=== PATIENT | male | born 2005 | race Caucasian/White ===

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

== ENCOUNTER 2024-04-29 21:18 | Emergency (ER) | payer BC ==
[~2024-04-29] VITALS: Ht 167.6 cm; Wt 104.3 kg
== END 2024-04-29 21:50 | disposition home or self-care (01) ==
LOC: ED 21:18
DX: H57.89 Other specified disorders of eye and adnexa (principal); Z77.098 Contact with and (suspected) exposure to other hazardous, chiefly nonmedicinal, chemicals; F90.9 Attention-deficit hyperactivity disorder, unspecified type

== ENCOUNTER 2024-10-24 17:35 | Emergency (ER) | payer BC ==
[~2024-10-24] VITALS: Ht 170.1 cm; Wt 106.6 kg
[2024-10-24] MEDS ORDERED: ACETAMINOPHEN 325 MG TAB PO ONE (18:05)
[2024-10-24] MEDS ORDERED: AVPAK AZITHROM250 M1 PO (18:45)
[2024-10-24] MEDS ORDERED: AZITHROMYCIN 250 MG TAB PO ONE (18:50)
== END 2024-10-24 18:58 | disposition home or self-care (01) ==
LOC: ED 17:35
DX: J18.9 Pneumonia, unspecified organism (principal); Z20.822 Contact with and (suspected) exposure to COVID-19; R11.2 Nausea with vomiting, unspecified; F90.9 Attention-deficit hyperactivity disorder, unspecified type

== ENCOUNTER 2025-03-16 16:49 | Emergency (ER) | payer BC ==
[~2025-03-16] VITALS: Ht 167.6 cm; Wt 104.3 kg
[~2025-03-16 16:49] MED LIST changes: +AVPAK AZITHROM250 M1 PO
[2025-03-16] MEDS ORDERED: Metoclopramide Hydrochloride 10 MG/2 ML VIAL IV ONE (17:15)
[2025-03-16] MEDS ORDERED: diphenhydrAMINE hydrochloride 50 MG/ML VIAL IV ONE (17:15)
[2025-03-16] MEDS ORDERED: SODIUM CHLORIDE 0.9% 500 ML IV ONE (17:15)
[2025-03-16] MEDS ORDERED: Ondansetron Hydrochloride 4 MG/2 ML VIAL IV ONE (17:15)
[2025-03-16] MEDS ORDERED: Ondansetron4 MG PO (18:36)
[2025-03-16] MEDS ORDERED: BUTALB-ACETAMI1 EAC2 PO (18:36)
== END 2025-03-16 18:48 | disposition home or self-care (01) ==
LOC: ED 16:49
DX: G43.909 Migraine, unspecified, not intractable, without status migrainosus (principal); Z79.899 Other long term (current) drug therapy

== ENCOUNTER 2025-03-30 11:24 | Emergency (ER) | payer OTHER, BC ==
[~2025-03-30] VITALS: Ht 167.6 cm; Wt 104.3 kg
[~2025-03-30 11:24] MED LIST changes: +BUTALB-ACETAMI1 EAC2 PO; +Ondansetron4 MG PO
[2025-03-30] MEDS ORDERED: METHOCARBAMOL750 M1 PO (12:12)
== END 2025-03-30 12:46 | disposition home or self-care (01) ==
LOC: ED 11:24
DX: S39.011A Strain of muscle, fascia and tendon of abdomen, initial encounter (principal); G43.909 Migraine, unspecified, not intractable, without status migrainosus; Z79.899 Other long term (current) drug therapy; X58.XXXA Exposure to other specified factors, initial encounter; Y93.89 Activity, other specified; Y92.89 Other specified places as the place of occurrence of the external cause; Y99.8 Other external cause status